=== PATIENT | male | born 1965 | race Caucasian/White ===

== ENCOUNTER 2020-07-03 23:24 | Emergency (ER) | payer SELFPAY ==
[~2020-07-03] VITALS: Ht 175.3 cm; Wt 93.0 kg
[2020-07-03 23:26] VITALS: Ht 175.3 cm; Wt 93.0 kg
[2020-07-04 01:15] VITALS: BP 145/97
== END 2020-07-04 01:15 | disposition home or self-care (01) ==
LOC: ED 23:24
DX: S81.811A Laceration without foreign body, right lower leg, initial encounter (principal); L97.811 Non-pressure chronic ulcer of other part of right lower leg limited to breakdown of skin; I87.2 Venous insufficiency (chronic) (peripheral); I83.891 Varicose veins of right lower extremity with other complications; R03.0 Elevated blood-pressure reading, without diagnosis of hypertension; X58.XXXA Exposure to other specified factors, initial encounter; Y93.89 Activity, other specified; Y92.89 Other specified places as the place of occurrence of the external cause; Y99.8 Other external cause status
CPT/HCPCS: 90715; J2001; Q0092